=== PATIENT | female | born 1945 | race African-American/Black ===

== ENCOUNTER → 2017-09-20 | Outpatient (CLI) | payer MEDICARE, MEDICAID ==
[~2017-09-20] VITALS: Ht 162.6 cm; Wt 101.5 kg
[~2017-09-20] MED LIST: LEVOXYL0.175 MG PO; PRINIVIL20 MG PO; PROCARDIA XL 3030 MG PO
[2017-09-20 10:47] VITALS: BP 213/100; PULSE 78
[2017-09-20 12:08] VITALS: BP 202/108; PULSE 121
[2017-09-20 12:09] VITALS: BP 220/100; PULSE 108
== END ==
LOC: COL.CARD 10:14
DX: I10 Essential (primary) hypertension (principal); E78.00 Pure hypercholesterolemia, unspecified
CPT/HCPCS: A9502; J2785

== ENCOUNTER → 2017-11-06 | Outpatient (CLI) | payer MEDICARE, MEDICAID | LOC: COL.RAD 10:17 | DX: N95.0 Postmenopausal bleeding (principal) ==

== ENCOUNTER 2017-12-05 11:44 | Outpatient (CLI) | payer MEDICARE, MEDICAID ==
[2017-12-05] VITALS (10 sets, daily range): BP systolic 97–189; BP diastolic 45–80; PULSE 48–87; TEMP 97.7
[~2017-12-05] VITALS: Ht 162.6 cm; Wt 96.9 kg
[2017-12-05 12:13] LABS: HEMATOCRIT 42.1 % (37.0-47.0); HEMOGLOBIN 14.1 g/dl (12.5-16.0); MEAN CELL VOLUME 94 fl (80.0-100.0); MEAN CORPUSCULAR HEMOGLOBIN 31 pg (27.0-31.0); MEAN CORPUSCULAR HGB CONC 34 g/dl (33.0-37.0); PLATELET COUNT 216 K/mm3 (130-400); RED BLOOD COUNT 4.49 M/mm3 (4.10-5.30); REDCELL DISTRIBUTION WIDTH-CV 13.4 % (11.5-14.5)
[2017-12-05 12:18] LABS: INR 1.1 (0.8-3.0); PROTHROMBIN TIME 12.4 SECONDS (9.7-12.8)
[2017-12-05 12:24] LABS: CALCIUM 9.3 mg/dL (8.4-10.2); POTASSIUM 3.7 mmol/L (3.4-5.0)
[2017-12-05] MEDS ORDERED: MASON NATURAL1200 MG PO (13:57)
[2017-12-05] MEDS ORDERED: PLAVIX 75MG TAB75 MG PO (13:58)
[2017-12-05] MEDS ORDERED: ASPIRIN 81M81 MG/TA2 PO (13:59)
[2017-12-05] MEDS ORDERED: FIBER CHOICE1 CTB PO (14:00)
[2017-12-05] MEDS ORDERED: TOPROL XL 25MG25 MG PO (14:01)
== END 2017-12-05 20:25 | disposition home or self-care (01) ==
LOC: COL.VAS 11:44
PROVIDERS: Internal Medicine Cardiovascular Disease
DX: I08.2 Rheumatic disorders of both aortic and tricuspid valves (principal); I10 Essential (primary) hypertension; Z82.49 Family history of ischemic heart disease and other diseases of the circulatory system
CPT/HCPCS: J2250; J3010; Q9967

== ENCOUNTER → 2018-04-12 | Outpatient (CLI) | payer MEDICARE, MEDICAID ==
[~2018-04-12] MED LIST changes: +ASPIRIN 81M81 MG/TA2 PO; +FIBER CHOICE1 CTB PO; +MASON NATURAL1200 MG PO; +PLAVIX 75MG TAB75 MG PO; +TOPROL XL 25MG25 MG PO
== END ==
LOC: COL.RAD 08:18
DX: C54.1 Malignant neoplasm of endometrium (principal); R91.8 Other nonspecific abnormal finding of lung field; R54 Age-related physical debility
CPT/HCPCS: Q9967

== ENCOUNTER 2018-06-05 07:59 | Day surgery (SDC) | payer MEDICARE, MEDICAID ==
[~2018-06-05] VITALS: Ht 160 cm; Wt 94.0 kg
[2018-06-05] MEDS ORDERED: PROCARDIA XL 6060 MG PO (08:19)
[2018-06-05] MEDS ORDERED: PROTONIX 40MG T40 MG PO (08:20)
[2018-06-05] MEDS ORDERED: TOPROL XL 50MG50 MG PO (08:21)
[2018-06-05 08:23] VITALS: PULSE 89; TEMP 98.2
[2018-06-05 10:30] VITALS: BP 95/69; PULSE 70; TEMP 97.4
[2018-06-05] MEDS ORDERED: NORCO 325 MG-51 TAB PO (10:33)
[2018-06-05 10:45] VITALS: BP 128/81; PULSE 79
[2018-06-05 11:00] VITALS: BP 161/82; PULSE 69
[2018-06-05 11:15] VITALS: BP 164/79; PULSE 64
== END 2018-06-05 11:30 | disposition home or self-care (01) ==
LOC: SDCO 07:59
DX: C54.1 Malignant neoplasm of endometrium (principal); C78.6 Secondary malignant neoplasm of retroperitoneum and peritoneum; I10 Essential (primary) hypertension; E03.9 Hypothyroidism, unspecified; Z90.710 Acquired absence of both cervix and uterus; Z82.49 Family history of ischemic heart disease and other diseases of the circulatory system; Z80.0 Family history of malignant neoplasm of digestive organs; Z80.1 Family history of malignant neoplasm of trachea, bronchus and lung; Z80.8 Family history of malignant neoplasm of other organs or systems
CPT/HCPCS: C1788; J0690; J2250; J2405; J2704; J3010; J7120

== ENCOUNTER 2018-08-01 18:54 | Inpatient (IN) | payer MEDICARE, MEDICAID ==
[~2018-08-01] VITALS: Ht 160 cm; Wt 87.5 kg
[~2018-08-01 18:54] MED LIST changes: -ELIQUIS 5MG PO; -SENOKOT8.6 MG PO; -WOMEN'S DAILY1 TAB PO
[2018-08-01 19:33] VITALS: BP 187/94; PULSE 100; TEMP 98.2
[2018-08-01 19:51] VITALS: BP 187/94; PULSE 100; TEMP 98.2
[2018-08-01] MEDS ORDERED: ELIQUIS 5MG PO (20:06)
[2018-08-01] MEDS ORDERED: WOMEN'S DAILY1 TAB PO (20:08)
[2018-08-01] MEDS ORDERED: SENOKOT8.6 MG PO (20:34)
[2018-08-01 21:23] LABS: BASO % 0.4 % (0.0-2.0); EOS % 1.2 % (0-4.0); GRAN % 39.9 % (42.2-75.2); HEMOGLOBIN 10.3 g/dl (12.5-16.0); LYMPH # 1.2 (1.2-3.4); LYMPH % 48.6 % (20.0-51.0); MEAN CELL VOLUME 90 fl (80.0-100.0); MEAN CORPUSCULAR HEMOGLOBIN 30 pg (27.0-31.0); MEAN CORPUSCULAR HGB CONC 34 g/dl (33.0-37.0); MEAN PLATELET VOLUME 9.7 fl (7.4-10.4); MONO # 0.2 (0.1-0.6); MONO % 9.5 % (1.7-9.3); PLATELET COUNT 202 K/mm3 (130-400); RED BLOOD COUNT 3.42 M/mm3 (4.10-5.30); REDCELL DISTRIBUTION WIDTH-CV 17.8 % (11.5-14.5)
[2018-08-01 21:24] LABS: HEMATOCRIT 30.7 % (37.0-47.0)
[2018-08-01 21:28] LABS: INR 1.3 (0.8-3.0); PROTHROMBIN TIME 14.3 SECONDS (9.7-12.8)
[2018-08-01 21:31] LABS: PARTIAL THROMBOPLASTIN TIME 35.9 SECONDS (26.0-37.0)
[2018-08-01 21:35] LABS: ALBUMIN 3.8 gm/dL (3.5-5.0); BILIRUBIN,TOTAL 0.5 mg/dL (0.0-1.0); CREATININE, serum 0.72 mg/dL (0.52-1.25); POTASSIUM 3.6 mmol/L (3.4-5.0); TOTAL PROTEIN 7.3 gm/dL (6.4-8.2)
[2018-08-01 22:21] LABS: TROPONIN-I 0.036 ng/mL (0.000-0.034)
[2018-08-02] VITALS: BP 136/73; PULSE 72; TEMP 98.1
[2018-08-02 00:18] LABS: PH 7 (5-8); SQUAMOUS EPITHELIAL 0-2 /hpf; URINE APPEARANCE Clear; URINE BACTERIA None Seen /hpf; URINE BILIRUBIN Negative (NEGATIVE); URINE BLOOD Negative (NEGATIVE); URINE COLOR Yellow; URINE GLUCOSE Negative (NEGATIVE); URINE KETONE Trace (NEGATIVE); URINE LEUKOCYTE ESTERASE Trace (NEGATIVE); URINE NITRATE Negative (NEGATIVE); URINE PROTEIN(semi-quant) 1+ (NEGATIVE); URINE RBC 0-2 /hpf; URINE UROBILINOGEN >=4.0 mg/dL (NEGATIVE)
[2018-08-02 03:41] LABS: COLLECTION METHOD CLEAN CATCH
[2018-08-02 04:00] VITALS: BP 179/88; PULSE 81; TEMP 98
[2018-08-02 04:10] LABS: HEMATOCRIT 29.2 % (37.0-47.0); HEMOGLOBIN 9.8 g/dl (12.5-16.0); MEAN CELL VOLUME 91 fl (80.0-100.0); MEAN CORPUSCULAR HEMOGLOBIN 31 pg (27.0-31.0); MEAN CORPUSCULAR HGB CONC 34 g/dl (33.0-37.0); MEAN PLATELET VOLUME 10.1 fl (7.4-10.4); PLATELET COUNT 188 K/mm3 (130-400); REDCELL DISTRIBUTION WIDTH-CV 18.2 % (11.5-14.5)
[2018-08-02 04:26] LABS: CALCIUM 8.5 mg/dL (8.4-10.2); CREATININE, serum 0.62 mg/dL (0.52-1.25); POTASSIUM 3.6 mmol/L (3.4-5.0)
[2018-08-02 04:42] LABS: TROPONIN-I 0.041 ng/mL (0.000-0.034)
[2018-08-02 04:46] LABS: BAND 14 % (0-10); BASOPHIL 2 % (0-2); EOSINOPHIL 4 % (0-4); LYMPHOCYTE 62 % (20.0-51.0); NEUTROPHILS 18 % (42.0-75.2); PLATELET ESTIMATE NORMAL (NORMAL)
[2018-08-02 04:47] LABS: ANISOCYTOSIS 1+; OVALOCYTES 1+; SCHISTOCYTES 1+
[2018-08-02 06:57] LABS: PARTIAL THROMBOPLASTIN TIME 106.4 SECONDS (26.0-37.0)
[2018-08-02 08:06] LABS: PATHOLOGY DIFF REVIEW OK
[2018-08-02 08:29] LABS: PARTIAL THROMBOPLASTIN TIME 43.1 SECONDS (26.0-37.0)
[2018-08-02 12:00] VITALS: BP 161/82; TEMP 97.9
[2018-08-02 13:15] VITALS: PULSE 103
[2018-08-02 13:43] LABS: INR 1.3 (0.8-3.0); PROTHROMBIN TIME 15.1 SECONDS (9.7-12.8)
[2018-08-02 16:00] VITALS: BP 146/73; PULSE 67; TEMP 97.8
[2018-08-02 20:00] VITALS: BP 148/73; PULSE 71; TEMP 98.6
[2018-08-02 23:26] LABS: PARTIAL THROMBOPLASTIN TIME 62.9 SECONDS (26.0-37.0)
[2018-08-03 00:15] VITALS: BP 113/64; PULSE 84; TEMP 98.1
[2018-08-03 04:00] VITALS: BP 149/81; PULSE 71; TEMP 98.1
[2018-08-03 05:40] LABS: MEAN CELL VOLUME 92 fl (80.0-100.0); MEAN CORPUSCULAR HGB CONC 33 g/dl (33.0-37.0); PLATELET COUNT 226 K/mm3 (130-400); RED BLOOD COUNT 3.04 M/mm3 (4.10-5.30); REDCELL DISTRIBUTION WIDTH-CV 18.8 % (11.5-14.5)
[2018-08-03 05:41] LABS: HEMATOCRIT 28.1 % (37.0-47.0); HEMOGLOBIN 9.3 g/dl (12.5-16.0); MEAN CORPUSCULAR HEMOGLOBIN 31 pg (27.0-31.0)
[2018-08-03 05:53] LABS: CALCIUM 8.1 mg/dL (8.4-10.2); CREATININE, serum 0.63 mg/dL (0.52-1.25); POTASSIUM 3.6 mmol/L (3.4-5.0)
[2018-08-03 07:41] VITALS: BP 168/81; PULSE 72; TEMP 98
[2018-08-03] MEDS ORDERED: ELIQUIS 5MG PO (11:08)
[2018-08-03 12:00] VITALS: BP 162/82; PULSE 67; TEMP 98.1
== END 2018-08-03 13:35 | disposition home or self-care (01) | DRG 167 ==
LOC: ICU 18:54
PROVIDERS: Internal Medicine; Nurse Practitioner Family; Physician Assistant; Radiology Diagnostic Radiology
PROC: 06H03DZ Insertion of Intraluminal Device into Inferior Vena Cava, Percutaneous Approach (ICD-10-PCS; principal; 2018-08-02)
DX: I26.99 Other pulmonary embolism without acute cor pulmonale (principal); I82.411 Acute embolism and thrombosis of right femoral vein; C78.6 Secondary malignant neoplasm of retroperitoneum and peritoneum; I82.431 Acute embolism and thrombosis of right popliteal vein; I10 Essential (primary) hypertension; I25.10 Atherosclerotic heart disease of native coronary artery without angina pectoris; C54.1 Malignant neoplasm of endometrium; Z87.891 Personal history of nicotine dependence; D64.9 Anemia, unspecified
CPT/HCPCS: 99223-AI; 99239; J0360; J1644; J2250; J3010; J7030; Q9967

== ENCOUNTER → 2018-08-01 | Outpatient (CLI) | payer MEDICARE, MEDICAID ==
[~2018-08-01] MED LIST changes: +ELIQUIS 5MG PO; +NORCO 325 MG-51 TAB PO; +PROCARDIA XL 6060 MG PO; +PROTONIX 40MG T40 MG PO; +SENOKOT8.6 MG PO; +TOPROL XL 50MG50 MG PO; +WOMEN'S DAILY1 TAB PO
== END ==
LOC: COL.RAD 08:21
DX: C56.2 Malignant neoplasm of left ovary (principal); C54.1 Malignant neoplasm of endometrium; I26.99 Other pulmonary embolism without acute cor pulmonale; J18.1 Lobar pneumonia, unspecified organism; K80.20 Calculus of gallbladder without cholecystitis without obstruction; N20.0 Calculus of kidney; Z90.710 Acquired absence of both cervix and uterus
CPT/HCPCS: Q9967

== ENCOUNTER → 2018-08-01 | Outpatient (CLI) | payer MEDICARE, MEDICAID | LOC: COL.VAS 12:55 | DX: I82.411 Acute embolism and thrombosis of right femoral vein (principal); I82.431 Acute embolism and thrombosis of right popliteal vein; I26.99 Other pulmonary embolism without acute cor pulmonale; Z86.718 Personal history of other venous thrombosis and embolism ==

== ENCOUNTER → 2018-08-01 | Emergency (ER) | payer MEDICARE, MEDICAID ==
[2018-08-01] VITALS (143 sets, daily range): O2SAT 95–100
[2018-08-02] VITALS (767 sets, daily range): O2SAT 67–100
[2018-08-03] VITALS (268 sets, daily range): O2SAT 91–100
== END ==
LOC: COL.ER 18:49
DX: Z72.9 Problem related to lifestyle, unspecified (principal)

== ENCOUNTER → 2018-10-26 | Outpatient (CLI) | payer MEDICARE, MEDICAID ==
[~2018-10-26] MED LIST changes: +ELIQUIS 5MG PO; +SENOKOT8.6 MG PO; +WOMEN'S DAILY1 TAB PO
== END ==
LOC: COL.VAS 08:36
DX: C56.2 Malignant neoplasm of left ovary (principal); M79.89 Other specified soft tissue disorders

== ENCOUNTER 2018-11-12 08:39 | Outpatient (CLI) | payer MEDICARE, MEDICAID ==
[~2018-11-12] VITALS: Ht 157.5 cm; Wt 83.2 kg
[2018-11-12 09:02] VITALS: BP 175/84; PULSE 67; TEMP 98.6
[2018-11-12] MEDS ORDERED: HYGROTON 2525 MG/TAB (09:31)
[2018-11-12] MEDS ORDERED: ELIQUIS 5MG PO (09:32)
[2018-11-12 12:27] VITALS: BP 190/94; PULSE 89
--- NOTE | 2018-11-12 12:31 | NUR ---
ALL MEDICATION GIVEN WITH VORB WITH MD. SEE MERGE FOR ALL MEDICATION ADMIN TIMES. SEE MERGE FOR ALL RASS ASSESSMENTS DURING AND POST PROCEDURE.
[2018-11-12 13:30] VITALS: BP 164/78; PULSE 60
--- NOTE | 2018-11-12 13:30 | NUR ---
PT BACK TO ROOM 10 POST IVC FILTER REMOVAL. VSS AND AX0X3. DENIES PAIN. RIGHT NECK DRESSING C/D/I. PT RESTING COMFORTABLY IN BED AT THIS TIME AND ORDERING FOOD.
--- NOTE | 2018-11-12 15:40 | NUR ---
PT VSS AND AX0X3 POST IVC FILTER REMOVAL. DRESSING REMAINED C/D/I AND PT VERBALIZES NO PAIN. TOLERATING FOOD AND FLUID PO WITHOUT ISSUE. PORT FLUSHED AND D/C W/BAND AID PLACED OVER SITE. DISCHARGE INSTRUCTIONS REVIEWED AND SIGNED. PT WHEELED OUT VIA WHEELCHAIR WITH SISTER WAITING AT ENTRANCE ART GLASS SETTER.
== END 2018-11-12 15:40 | disposition home or self-care (01) ==
LOC: COL.CAR 08:39
DX: Z45.2 Encounter for adjustment and management of vascular access device (principal); Z86.711 Personal history of pulmonary embolism; Z86.718 Personal history of other venous thrombosis and embolism; Z79.01 Long term (current) use of anticoagulants; Z85.43 Personal history of malignant neoplasm of ovary; Z90.710 Acquired absence of both cervix and uterus
CPT/HCPCS: J1644; J2250; J3010; J7120; Q9967

== ENCOUNTER 2018-11-14 14:50 | Inpatient (IN) | payer MEDICARE, MEDICAID ==
[~2018-11-14] VITALS: Ht 157.5 cm; Wt 88.4 kg
[~2018-11-14 14:50] MED LIST changes: +HYGROTON 2525 MG/TAB
[2018-11-14] MEDS ORDERED: SYNTHROID0.175 MG PO (15:10)
[2018-11-14 16:45] VITALS: BP 153/73; PULSE 67
[2018-11-14 16:52] LABS: BASO % 0.2 % (0.0-2.0); EOS % 0.2 % (0-4.0); GRAN # 8.3 (1.4-6.5); GRAN % 81.1 % (42.2-75.2); HEMOGLOBIN 10.3 g/dl (12.5-16.0); LYMPH # 1.2 (1.2-3.4); LYMPH % 11.9 % (20.0-51.0); MEAN CELL VOLUME 99 fl (80.0-100.0); MEAN CORPUSCULAR HEMOGLOBIN 32 pg (27.0-31.0); MEAN CORPUSCULAR HGB CONC 32 g/dl (33.0-37.0); MEAN PLATELET VOLUME 10.1 fl (7.4-10.4); MONO # 0.6 (0.1-0.6); MONO % 5.8 % (1.7-9.3); PLATELET COUNT 214 K/mm3 (130-400); RED BLOOD COUNT 3.21 M/mm3 (4.10-5.30); REDCELL DISTRIBUTION WIDTH-CV 14.8 % (11.5-14.5)
[2018-11-14 16:54] LABS: HEMATOCRIT 31.9 % (37.0-47.0)
[2018-11-14 17:01] LABS: ALANINE AMINOTRANSFERASE 10 U/L (9-52); ALBUMIN 3.7 gm/dL (3.5-5.0); ALKALINE PHOSPHATASE 118 U/L (50-136); ANION GAP 6 mmol/L (7-16); AST,SGOT 51 U/L (15-37); BILIRUBIN,TOTAL 0.4 mg/dL (0.0-1.0); BLOOD UREA NITROGEN 18 mg/dL (7-17); CALCIUM 9.4 mg/dL (8.4-10.2); CARBON DIOXIDE 27 mmol/L (22-30); CHLORIDE 102 mmol/L (98-107); CREATININE, serum 0.81 (0.52-1.25); GLUCOSE 157 mg/dL (74-106); POTASSIUM 3.9 mmol/L (3.4-5.0); SODIUM 136 mmol/L (137-145); TOTAL PROTEIN 7.4 gm/dL (6.4-8.2)
[2018-11-14 17:07] LABS: C-REACTIVE PROTEIN 0.5 mg/dL (0.0-0.9)
[2018-11-14 17:18] LABS: TROPONIN-I < 0.012 ng/mL (0.000-0.035)
[2018-11-14 18:16] LABS: COLLECTION METHOD CLEAN CATCH
[2018-11-14 18:49] LABS: HYALINE CAST >12 /lpf; MUCOUS Present /lpf; PH 7 (5-8); URINE APPEARANCE Hazy; URINE BACTERIA Rare /hpf; URINE BILIRUBIN Negative (NEGATIVE); URINE BLOOD Negative (NEGATIVE); URINE COLOR Yellow; URINE GLUCOSE Negative (NEGATIVE); URINE KETONE Negative (NEGATIVE); URINE LEUKOCYTE ESTERASE 2+ (NEGATIVE); URINE NITRATE Negative (NEGATIVE); URINE PROTEIN(semi-quant) Negative (NEGATIVE); URINE UROBILINOGEN Negative (NEGATIVE)
--- NOTE | 2018-11-14 22:42 | NUR ---
PT ARRIVED FROM ER VIA GURNEY ACCOMPANIED BY CREATIVE PROJECT MANAGER. PT WAS ASSISTED FROM [facility] TO BED WITH SLIDE BOARD. PT RESTING IN BED. HAS C/O NECK PAIN FROM WHERE SHE HIT HER NECK WHEN SHE FELL. AREA TO BACK OF HEAD HAS BANDAID THAT IS C/D/I. CALL LIGHT WITHIN REACH.
--- NOTE | 2018-11-14 22:46 | NUR ---
PT ADVISES THAT SHE HAD CHEMO THERAPY 2 WEEKS AGO AND THAT SHE IS SCHEDULED FOR CHEMO THERAPY A WEEK FROM MONDAY.
[2018-11-14 23:43] VITALS: BP 161/64; PULSE 71; TEMP 98.3
[2018-11-14 23:44] VITALS: BP 161/64; PULSE 70; TEMP 98.3
--- NOTE | 2018-11-15 00:30 | NUR ---
RECEIVED ORDER FROM RACHID CHIN IF PT NEEDS TWO LIDOCAINE PATCHES TO GO AHEAD AND PUT IN A SECOND ON.
--- NOTE | 2018-11-15 01:39 | NUR ---
PT RESTING IN BED WITH HOB FLAT. PT HAS TWO LIDOCAINE PATCHES ON, PER PT'S REQUEST FOR PAIN. CALL LIGHT WITHIN REACH.
--- NOTE | 2018-11-15 03:52 | NUR ---
ASSISTED PT ONTO BEDPAN. PT HAD OUTPUT, BUT REFUSES TO DRINK WATER OR EVEN GET IT FOR HER. PT HAS NO FURTHER NEEDS, AND CALL LIGHT WITHIN REACH.
[2018-11-15 04:29] VITALS: BP 111/71; BP 154/67; PULSE 63; PULSE 81; TEMP 98.2
[2018-11-15 06:46] LABS: BASO % 0.1 % (0.0-2.0); EOS % 0.2 % (0-4.0); GRAN # 6.2 (1.4-6.5); LYMPH # 1.3 (1.2-3.4); LYMPH % 15.5 % (20.0-51.0); MEAN CELL VOLUME 99 fl (80.0-100.0); MEAN CORPUSCULAR HGB CONC 32 g/dl (33.0-37.0); MEAN PLATELET VOLUME 10.7 fl (7.4-10.4); MONO # 0.6 (0.1-0.6); MONO % 6.8 % (1.7-9.3); PLATELET COUNT 200 K/mm3 (130-400); RED BLOOD COUNT 2.91 M/mm3 (4.10-5.30); REDCELL DISTRIBUTION WIDTH-CV 14.8 % (11.5-14.5)
[2018-11-15 06:48] LABS: HEMATOCRIT 28.9 % (37.0-47.0); HEMOGLOBIN 9.3 g/dl (12.5-16.0); MEAN CORPUSCULAR HEMOGLOBIN 32 pg (27.0-31.0)
[2018-11-15 06:54] LABS: CALCIUM 8.8 mg/dL (8.4-10.2); CREATININE, serum 0.69 (0.52-1.25); POTASSIUM 3.7 mmol/L (3.4-5.0)
--- NOTE | 2018-11-15 08:00 | NUR ---
PATIENT IS A&O. VSS. TELE INPLACE. C/O NECK STIFFNESS FROM FALL. NOTED SMALL LACERATION TO BACK OF HEAD THAT IS COVERED WITH BANDAID. PATIENT REQUESTING ICE PACK FOR NECK. PATIENT HAS CHRONIC PAIN ISSUES. APPLIED LIDODERM PATCHES X2 TO SHOULDER AND BACK. NEURO CHECKS WNL. HEAD TO ASSESSMENT WNL. PATIENT DOES C/O DIZZINESS WITH AMBULATION. PATIENT REQUESTED TO USE BED BUTCHER THIS AM. PT TO EVAL AND TREAT TODAY. IV FLUIDS INFUSING AT 60CC/HR INTO RIGHT PORT. PATIENT REPORTS DECREASED APPETITE BUT THIS IS NORMAL WITH HER CHEMO. PATIENT REPORTS HER NEXT CHEMO IS SCHEDULED FOR NEXT MONDAY. PATIENT DRINKING ENSURE THIS AM. NO OTHER NEEDS. CALL LIGHT IN REACH.
[2018-11-15 08:04] VITALS: BP 149/60; PULSE 67; TEMP 98.3
--- NOTE | 2018-11-15 09:05 | NUR ---
BENI and SW student met with the patient to discuss discharge plan. The patient lives alone in [place]. She states that her sisters (Pia and Juan) and her son (Carlos) live in town. She reports independence with ADLs and does not use any DME. She states that her sister, Pia, is her ship's cook and provides support. The patient's PCP is Dr. Bharti Morley and she receives her medications at the [facility]. She reports no difficulties obtaining her meds. The patient does not have advanced directives, but she was interested in obtaining a form for DPOA-HC. SW provided. The patient plans to return home upon discharge. No identified needs at this time, but SW to continue to follow.
--- NOTE | 2018-11-15 11:30 | NUR ---
PATIENT TRANSFERING TO MEDICAL UNIT. CALLED REPORT TO RN.
--- NOTE | 2018-11-15 11:30 | NUR ---
Pt brought to floor. Pt lying in bed, breathing even and unlabored. Denies any needs at this time.
[2018-11-15 11:56] VITALS: BP 137/44; PULSE 59; TEMP 98
--- NOTE | 2018-11-15 13:00 | NUR ---
Pt lying in bed, eyes closed. Breathing even and unlabored.
--- NOTE | 2018-11-15 14:00 | NUR ---
Pt lying in bed, completed assessment. Requested lidocaine patch for shoulder. Pt denies any needs.
--- NOTE | 2018-11-15 14:13 | NUR ---
PT in room with pt. Pt complaining of pain while sitting up. Pt states her pain is in her neck. Medications administered. Will follow up with heat pads.
[2018-11-15 15:53] VITALS: BP 107/51; PULSE 55; TEMP 98.1
--- NOTE | 2018-11-15 19:34 | NUR ---
PT LYING IN BED, REQUESTING HEAT PACK. HAND OFF REPORT GIVEN TO TAMAR DURÁN
[2018-11-15 20:00] VITALS: BP 132/62; PULSE 62; TEMP 98.7
--- NOTE | 2018-11-15 22:58 | NUR ---
Completed medication administration and assessment; PT continues to utilize bedpan, ABX therapy for UTI, and PRN medication with heat packs for pain control; Lidocaine patches removed at 2100; PT A&Ox4, BS active x4, LCTA; @ patches removed, one from right shoulder and one from left shoulder; No patch found on neck; No further assessed or reported pain or concerns at time of exit; PT assisted to comfortable position in bed with call light within reach; Will continue to monitor. CDA
[2018-11-16] VITALS (10 sets, daily range): BP systolic 116–141; BP diastolic 44–82; PULSE 55–111; TEMP 97.8–98.9
--- NOTE | 2018-11-16 03:52 | NUR ---
PT resting well in bed with heating pad in place; Lidocaine patches removed at 2100 x2; NS running at 60ml/hr to [facility] port; Rocephin ABX therapy for UTI; No further assessed concerns or pain at time of exit; PT assisted to comfortable position in bed with call light within reach; Will continue to monitor. CDA
--- NOTE | 2018-11-16 06:50 | NUR ---
Report given to LUIS ARMANDO Black; No significant changes during shift change; minimal pain reported; NS hanging at 60ml/hr to [facility] Port. CDA
--- NOTE | 2018-11-16 07:00 | NUR ---
Report received from LUIS ARMANDO Bonner. PT in bed resting, requesting heat pack, and fresh water, will continue to monitor.
[2018-11-16 08:05] LABS: BASO % 0.2 % (0.0-2.0); EOS # 0.1 (0.0-0.7); EOS % 2.4 % (0-4.0); GRAN # 3.4 (1.4-6.5); GRAN % 64.5 % (42.2-75.2); LYMPH # 1.3 (1.2-3.4); LYMPH % 23.7 % (20.0-51.0); MEAN CELL VOLUME 102 fl (80.0-100.0); MEAN CORPUSCULAR HGB CONC 32 g/dl (33.0-37.0); MEAN PLATELET VOLUME 10.1 fl (7.4-10.4); MONO # 0.5 (0.1-0.6); PLATELET COUNT 180 K/mm3 (130-400); RED BLOOD COUNT 2.63 M/mm3 (4.10-5.30); REDCELL DISTRIBUTION WIDTH-CV 15.4 % (11.5-14.5)
[2018-11-16 08:06] LABS: HEMATOCRIT 26.7 % (37.0-47.0); HEMOGLOBIN 8.4 g/dl (12.5-16.0); MEAN CORPUSCULAR HEMOGLOBIN 32 pg (27.0-31.0)
[2018-11-16 08:13] LABS: CALCIUM 8.4 mg/dL (8.4-10.2); CREATININE, serum 0.88 (0.52-1.25); POTASSIUM 3.8 mmol/L (3.4-5.0)
--- NOTE | 2018-11-16 10:51 | NUR ---
Assessment charted. Pt has pain in neck and shoulders at 10/10, will provide pain meds when available, has 3 heat packs on neck, shoulders, and 3 lidocaine patches on as well. PAC to [facility] with IVF infusing. Will continue to monitor.
--- NOTE | 2018-11-16 18:13 | NUR ---
Pt has had okay day, resting in bed. Able to get up with us to do orthostatic blood pressures but otherwise using bed rojo and maintaining bed rest. PRN pain meds provided, k pad on neck and back as needed for pain. Will give bedside shift repot to nightshift nurse who will resume care.
--- NOTE | 2018-11-16 23:55 | NUR ---
Completed assessment and medication administration; PT tolerated all cares well; K-Pad in placed to upper neck and back; Lidocaine patches removed x3; PT continues to utilize bedpan during even hours with success; PT A&Ox4, BS active x4, normal skin; portacath to right upper chest without S/S of infection or drainage, LCTAB; No further verbalized and assessed concerns at time of exit; PT assisted to comfortable position in bed with call light and personal item within reach; Will continue to monitor. CDA
--- NOTE | 2018-11-17 01:52 | NUR ---
PT resting intermittently in bed with k-pad in place behind neck and shoulder blades; PT report mild pain and request to deem the remaining light and turned the TV off to attempt to rest for the remainder of the evening; NS at 60ml/hr to the [facility] port continues; No further assessed or verbalized needs at times of rounds; PT assisted to a comfortable position in bed with call light and personal items within reach; Will continue to monitor. CDA
[2018-11-17 04:20] VITALS: BP 137/53; PULSE 60; TEMP 98.4
[2018-11-17 06:28] LABS: BASO % 0.7 % (0.0-2.0); EOS # 0.2 (0.0-0.7); EOS % 3.6 % (0-4.0); GRAN # 2.5 (1.4-6.5); GRAN % 56.5 % (42.2-75.2); LYMPH # 1.2 (1.2-3.4); LYMPH % 27.8 % (20.0-51.0); MEAN CELL VOLUME 101 fl (80.0-100.0); MEAN CORPUSCULAR HGB CONC 31 g/dl (33.0-37.0); MEAN PLATELET VOLUME 10.7 fl (7.4-10.4); MONO # 0.5 (0.1-0.6); PLATELET COUNT 171 K/mm3 (130-400); RED BLOOD COUNT 2.65 M/mm3 (4.10-5.30)
[2018-11-17 06:30] LABS: CALCIUM 8.6 mg/dL (8.4-10.2); CREATININE, serum 0.78 (0.52-1.25); HEMATOCRIT 26.8 % (37.0-47.0); HEMOGLOBIN 8.4 g/dl (12.5-16.0); MEAN CORPUSCULAR HEMOGLOBIN 32 pg (27.0-31.0); POTASSIUM 3.7 mmol/L (3.4-5.0)
--- NOTE | 2018-11-17 07:05 | NUR ---
Report given to LUIS ARMANDO Larios; No significant changes or concerns at time of shift. CDA
[2018-11-17 07:52] VITALS: BP 12152/5; BP 152/56; PULSE 60; TEMP 98.6
--- NOTE | 2018-11-17 08:22 | NUR ---
Assessment complete.patient awake,alert and orientedx3.c/o chronic pain to neck and shoulders.licodaine patch applied.all meds given.LSCTA.colleen cath to [facility].IVF infusing.patient denies any other needs at this time.will continue to monitor.call light in reach
--- NOTE | 2018-11-17 10:18 | NUR ---
BENI followed up with the patient about home health services. The patient reports Pia, her sister is employed with [employer]. The patient reports that Pia will provide all the support she needs. There are no additional needs at this time.
[2018-11-17] MEDS ORDERED: OMNICEF 300MG300 MG PO (11:06)
[2018-11-17] MEDS ORDERED: Lidocaine 4% Patch TP (11:10)
[2018-11-17] MEDS ORDERED: NORCO 325 MG-51 TAB PO (14:24)
--- NOTE | 2018-11-17 14:43 | NUR ---
PATIENT DISCHARGE HOME AT THIS TIME.ALL DISCHARGE INSTRUCTIONS REVIEWED.ALL QUESTIONS ANSWERED.ALL PAPERWORK SIGNED.AU GRES SCRIPT GIVEN.PORT DE-ACCESSED.TELEMETRY DISCONTINUED.THIS RN ESCORTED PATIENT OUT.
== END 2018-11-17 14:45 | disposition home or self-care (01) | DRG 690 ==
LOC: COL.ER 14:50 → SURG 19:52 → MEDICAL 11-15 11:30 → SURG 11-15 11:30 → MEDICAL 11-15 14:39
PROVIDERS: Emergency Medicine; Nurse Practitioner; Nurse Practitioner Family; ADMIT Internal Medicine
DX: N39.0 Urinary tract infection, site not specified (principal); C78.6 Secondary malignant neoplasm of retroperitoneum and peritoneum; R55 Syncope and collapse; C54.1 Malignant neoplasm of endometrium; I25.10 Atherosclerotic heart disease of native coronary artery without angina pectoris; Z86.711 Personal history of pulmonary embolism; Z79.01 Long term (current) use of anticoagulants; Z86.718 Personal history of other venous thrombosis and embolism; I10 Essential (primary) hypertension; E03.9 Hypothyroidism, unspecified; B96.89 Other specified bacterial agents as the cause of diseases classified elsewhere; D64.9 Anemia, unspecified; M25.512 Pain in left shoulder; M54.2 Cervicalgia; W18.30XA Fall on same level, unspecified, initial encounter; S01.01XA Laceration without foreign body of scalp, initial encounter
CPT/HCPCS: 99222-AI; 99231-AI; 99239; J0696; J2405; J3010; J7030; Q9967

== ENCOUNTER 2019-02-25 13:15 | Inpatient (IN) | payer MEDICARE, MEDICAID ==
[~2019-02-25] VITALS: Ht 162.6 cm; Wt 75.9 kg
[~2019-02-25 13:15] MED LIST changes: +Lidocaine 4% Patch TP; +OMNICEF 300MG300 MG PO; +SYNTHROID0.175 MG PO
[2019-02-25] MEDS ORDERED: LEVAQUIN 5500 MG/TA1 PO (13:40)
[2019-02-25 13:46] LABS: MEAN CELL VOLUME 89 fl (80.0-100.0); MEAN CORPUSCULAR HGB CONC 33 g/dl (33.0-37.0); MEAN PLATELET VOLUME 9.5 fl (7.4-10.4); PLATELET COUNT 620 K/mm3 (130-400); RED BLOOD COUNT 3.03 M/mm3 (4.10-5.30); REDCELL DISTRIBUTION WIDTH-CV 16.6 % (11.5-14.5)
[2019-02-25] MEDS ORDERED: MAG64 110 MG-181 ECT PO (13:47)
[2019-02-25] MEDS ORDERED: MILK OF MA400 MG/52 PO (13:50)
[2019-02-25] MEDS ORDERED: CENTRUM SILVER1 TAB PO (13:51)
[2019-02-25 13:52] LABS: HEMATOCRIT 27.1 % (37.0-47.0); HEMOGLOBIN 8.8 g/dl (12.5-16.0); MEAN CORPUSCULAR HEMOGLOBIN 29 pg (27.0-31.0)
[2019-02-25] MEDS ORDERED: NATURAL FLAX1000 MG PO (13:52)
[2019-02-25] MEDS ORDERED: COMPAZINE 110 MG/TAB PO (13:52)
[2019-02-25] MEDS ORDERED: KAYEXALATE15 GM/60 M PO (13:53)
[2019-02-25] MEDS ORDERED: HYGROTON 2525 MG/TAB PO (13:57)
[2019-02-25 13:59] LABS: ALANINE AMINOTRANSFERASE 60 U/L (9-52); ALBUMIN 2.8 gm/dL (3.5-5.0); ALKALINE PHOSPHATASE 298 U/L (50-136); ANION GAP 11 mmol/L (7-16); AST,SGOT 360 U/L (15-37); BILIRUBIN,TOTAL 0.8 mg/dL (0.0-1.0); BLOOD UREA NITROGEN 37 mg/dL (7-17); CALCIUM 8.3 mg/dL (8.4-10.2); CARBON DIOXIDE 26 mmol/L (22-30); CHLORIDE 101 mmol/L (98-107); CREATININE, serum 1.33 (0.52-1.25); GLUCOSE 117 mg/dL (74-106); LIPASE 22 U/L (23-300); POTASSIUM 4.1 mmol/L (3.4-5.0); SODIUM 137 mmol/L (137-145)
[2019-02-25 14:12] LABS: C-REACTIVE PROTEIN 14.7 mg/dL (0.0-0.9); TROPONIN-I < 0.012 ng/mL (0.000-0.035)
[2019-02-25 14:30] LABS: ANISOCYTOSIS 1+; BAND 4 % (0-10); LYMPHOCYTE 13 % (20.0-51.0); NEUTROPHILS 83 % (42.0-75.2); PLATELET ESTIMATE INCREASED (NORMAL)
[2019-02-25 14:31] LABS: HYPOCHROMIA 1+; OVALOCYTES 1+
[2019-02-25 14:50] LABS: COLLECTION METHOD CLEAN CATCH
[2019-02-25 15:00] LABS: MUCOUS Present /lpf; PH 5 (5-8); SQUAMOUS EPITHELIAL 0-2 /hpf; URINE APPEARANCE Cloudy; URINE BACTERIA Many /hpf; URINE BILIRUBIN Negative (NEGATIVE); URINE BLOOD Negative (NEGATIVE); URINE COLOR Yellow; URINE GLUCOSE Negative (NEGATIVE); URINE KETONE Negative (NEGATIVE); URINE LEUKOCYTE ESTERASE 3+ (NEGATIVE); URINE NITRATE Negative (NEGATIVE); URINE PROTEIN(semi-quant) Negative (NEGATIVE); URINE RBC >50 /hpf; URINE UROBILINOGEN Negative (NEGATIVE)
[2019-02-25 17:12] LABS: RETIC # 0.02 M/mm3 (0.02-0.16); RETIC % 0.8 % (0.5-3.52)
[2019-02-25 17:16] LABS: IRON,SERUM 98 ug/dL (35-150)
[2019-02-25 17:25] LABS: TOTAL IRON BINDING CAPACITY 179 ug/dL (265-497)
--- NOTE | 2019-02-25 17:50 | NUR ---
Patient arrived to room 314 by wheelchair from ED. Oriented patient to the room, bed, call light. Assessment complete. Patient alert and oriented. Denies any pain or discomfort or any needs at this time. Call light within reach.
[2019-02-25 18:12] VITALS: BP 98/61; PULSE 75; TEMP 98.4
[2019-02-25 18:29] VITALS: BP 115/60; PULSE 85
[2019-02-25 18:30] VITALS: BP 119/61; PULSE 88
[2019-02-25 18:31] VITALS: BP 84/51; PULSE 100
[2019-02-25 18:42] LABS: FERRITIN 935 ng/mL (11-264)
[2019-02-25 19:50] VITALS: BP 117/59; PULSE 75; TEMP 98.6
--- NOTE | 2019-02-25 20:00 | NUR ---
PT RESTING IN BED a+oX4. REPORTS NO LIGHT HEADEDNESS, NO DIZZNESS. NUERO CHECKS INSIGNIFICANT AND UNCHANGED. SHIFT ASSESSMNET COMPLETE. LUNGS CLEAR. PORT-A-CATH FLUSHES WELL, BLOOD RETURN NOTED. LR RUNNING AT ORDERED RATE. NO REDNESS NO SWELLING AT PORT SITE. NO PAIN. PT USING BEDPAN. SIEIZURE AND FALL PRECAUTIONS IN PLACE. NO NEEDS AT THIS TIME. CALL LIGHT IN REACH.
[2019-02-25 22:56] LABS: CREATININE, serum 1.05 (0.52-1.25)
[2019-02-25 23:26] VITALS: BP 119/57; PULSE 78; TEMP 98.4
[2019-02-26 04:43] VITALS: BP 114/57; PULSE 81; TEMP 98.1
--- NOTE | 2019-02-26 05:08 | NUR ---
PT HAD AN UNEVENTFUL NIGHT. REPORTED NO PAIN. NO SOA. PORT-A-CATH FLUSHES WELL, BLOOD RETURN NOTED- IV FLUIDS RUNNING AT ORDERED RATE. PT REQUESTS BEDPAN THROUGHOUT NIGHT. NO BM. LINENS CHANGED. REPORTS POOR APPETITE. CHEMO PRECAUTIONS IN PLACE. NO NEEDS AT THIS TIEM. CALL LIGHT IN REACH. FALL PRECATIONS IN PLACE. BED ALRM ON
[2019-02-26 06:21] LABS: MEAN CELL VOLUME 91 fl (80.0-100.0); MEAN CORPUSCULAR HGB CONC 32 g/dl (33.0-37.0); MEAN PLATELET VOLUME 9.4 fl (7.4-10.4); RED BLOOD COUNT 2.53 M/mm3 (4.10-5.30); REDCELL DISTRIBUTION WIDTH-CV 16.6 % (11.5-14.5)
[2019-02-26 06:33] LABS: HEMATOCRIT 22.9 % (37.0-47.0); HEMOGLOBIN 7.3 g/dl (12.5-16.0); MEAN CORPUSCULAR HEMOGLOBIN 29 pg (27.0-31.0); PLATELET COUNT 405 K/mm3 (130-400)
[2019-02-26 06:35] LABS: ALBUMIN 2.5 gm/dL (3.5-5.0); BILIRUBIN,TOTAL 0.6 mg/dL (0.0-1.0); CALCIUM 8.2 mg/dL (8.4-10.2); CREATININE, serum 0.96 (0.52-1.25); POTASSIUM 4.2 mmol/L (3.4-5.0); TOTAL PROTEIN 5.3 gm/dL (6.4-8.2)
[2019-02-26 06:57] VITALS: BP 126/59; PULSE 75; TEMP 98.2
--- NOTE | 2019-02-26 07:10 | NUR ---
REPORT GIVEN TO ML Treviño RN
[2019-02-26 07:53] LABS: BAND 2 % (0-10); LYMPHOCYTE 19 % (20.0-51.0); NEUTROPHILS 79 % (42.0-75.2)
[2019-02-26 07:54] LABS: ANISOCYTOSIS 1+; HYPOCHROMIA 2+; PLATELET ESTIMATE INCREASED (NORMAL)
--- NOTE | 2019-02-26 08:00 | NUR ---
PATIENT IS ORIENTED BUT VERY DROWSY. PATIENT REPORTS SHE DIDN'T GET ANY SLEEP LAST NIGHT. PATIENT HAS NEW DX OF OVARIAN CA AND LAST HAD CHEMO ON MONDAY. PATIENT FELL AT HOME AND WAS ADMITED FOR SYNCOPE. PATIENT HAS HX OF SEIZURES AND IS ON SEIZURE PRECAUTIONS. VSS. TELE INPLACE. HEART SOUNDS REGULAR/IRREGULAR IN THE 70'S. NEURO CHECKS WNL. SEE DAILY ORTHOSTATIC B/P'S. PT/OT WORKING WITH PATIENT. HEAD TO TOE ASSESSMENT COMPLETE. PATIENT RESTING IN BED AND JUST WANTS TO SLEEP. REFUSES BREAKFAST AT THIS TIME. AM MEDS GIVEN. CALL LIGHT IN REACH. LIGHTS TURNED DOWN.
--- NOTE | 2019-02-26 10:29 | NUR ---
Initial visit; Patient thanked Cdl Instructor for offering spiritual care, especially prayer and empathy.
--- NOTE | 2019-02-26 10:42 | NUR ---
Pt recieved chemotherapy drug Gemcitabine on February 22 through oncology office. Chemotherapy precautions for this drug are for the first 24 hours only. No chemotherapy precautions are needed at this time.
--- NOTE | 2019-02-26 11:00 | NUR ---
ONCOLOGY CONSULT CALLED.
[2019-02-26 11:12] VITALS: BP 127/59; PULSE 78
--- NOTE | 2019-02-26 14:51 | NUR ---
SW met with patient to discuss discharge planning. Patient lives at home alone but patient's sister is with patient everyday. Patient's PCP is Dr Morley and she obtains prescriptions from [facility] pharmacy. Patient does not use any DME or home health outside of [facility] from her sister. Patient reports her DPOA is her sister. SW does not anticipate any discharge needs but will continue to follow.
--- NOTE | 2019-02-26 15:18 | NUR ---
Follow-up visit; Patient thanked Garage Helper for checking on her before Garage Helper went home. Patient said she would see Garage Helper in the morning following Garage Helper offering God's blessings.
[2019-02-26 15:52] VITALS: BP 141/71; PULSE 80; TEMP 98.4
[2019-02-26 17:07] LABS: FOLATE (FOLIC ACID) 16.1 ng/mL (7.0-31.4)
--- NOTE | 2019-02-26 19:30 | NUR ---
PT RESTING IN BED A+OX4 WITH FAMILY AT BEDSIDE. REPORTS NO PAIN. PART-A-CATH FLUSHES, BLOOD RETUN NOTED- FLUIDS RUNNING AT ORDERED RATE. NUERO CHECKS INSIGNIFICANT, UNCHANGED. REPORTS FEELING TIRED. NO LIGHT HEADEDNESS, NO DIZZINESS. FALL PRECAUTIONS IN PLACE. CALL LIGHT IN REACH.
[2019-02-26 19:35] VITALS: BP 138/61; PULSE 82; TEMP 97.8
--- NOTE | 2019-02-26 21:30 | NUR ---
dc iv fluids at this time. no needs at this tiem
[2019-02-26 23:12] VITALS: BP 154/74; PULSE 85; TEMP 99.4
[2019-02-27] VITALS (8 sets, daily range): BP systolic 131–161; BP diastolic 62–76; PULSE 72–107; TEMP 98–98.8
--- NOTE | 2019-02-27 05:40 | NUR ---
PT HAD AN UNEVENTFUL NIGHT. NO PAIN. NEURO CHECKS INSIGNIFICANT AND UNCHANGED. STANDBY TO THE BR, GAIT STEADY. PORT-A-CATH FLUSHES WELL, NO REDNESS, NO SWELLING, BLOOD RETURN NOTED. LUNGS CLEAR. SIEZURE PRECATIONS IN PLACE. FALL PRECATIONS IN PLACE. BED ARLM ON. NO NEEDS AT THIS TIEM. CALL LIGHT IN REACH PT INSISTS IN TAKING ALL PILLS AT 1000 ADN 2200.
[2019-02-27 06:10] LABS: MEAN CELL VOLUME 92 fl (80.0-100.0); MEAN CORPUSCULAR HGB CONC 31 g/dl (33.0-37.0); MEAN PLATELET VOLUME 9.9 fl (7.4-10.4); PLATELET COUNT 444 K/mm3 (130-400); RED BLOOD COUNT 2.62 M/mm3 (4.10-5.30); REDCELL DISTRIBUTION WIDTH-CV 16.8 % (11.5-14.5)
[2019-02-27 06:23] LABS: ALBUMIN 2.5 gm/dL (3.5-5.0); BILIRUBIN,TOTAL 0.5 mg/dL (0.0-1.0); CALCIUM 8.2 mg/dL (8.4-10.2); CREATININE, serum 0.7 (0.52-1.25); HEMOGLOBIN 7.5 g/dl (12.5-16.0); MEAN CORPUSCULAR HEMOGLOBIN 29 pg (27.0-31.0); TOTAL PROTEIN 5.4 gm/dL (6.4-8.2)
[2019-02-27 07:06] LABS: HYPOCHROMIA 2+; LYMPHOCYTE 38 % (20.0-51.0); NEUTROPHILS 60 % (42.0-75.2); OVALOCYTES 1+; PLATELET ESTIMATE NORMAL (NORMAL)
--- NOTE | 2019-02-27 07:08 | NUR ---
REPORT GIVEN TO LUIS ARMANDO THOMAS. CHECKING ON NEUTROPENIC PRECATIONS
--- NOTE | 2019-02-27 18:23 | NUR ---
PT HAD UNEVENTFUL DAY. NEUPOGEN SUB-Q SHOT ORDERED BY ELIAS DAUGHERTY, THIS NURSE ADMINISTERED. PT TOLERATED WELL. NEUROS HAVE BEEN UNREMARKABLE. NO ISSUE OR CONSERNS OR ISSUES VOICED THIS SHIFT. OCCULT STOOL SAMPLE NOT OBTAINED, NO STOOLS NOTED THIS SHIFT. ORTHOSTATIC VITALS OBTIANED THIS AM AND DOCUMENTED.
--- NOTE | 2019-02-27 21:30 | NUR ---
PT RESTING IN BED A+OX4. REPORTS HEADACHE STATES "IT IS BECCAUSE MY BLOOD PRESSURE IS HIGH" - EROS CHIN NOTIFIED AND DENIED BLOOD PRESSURE MEDS D/T POSSITIVE OTHOSTATICS. TELE ON. BRZYM-U-LESO FLUSHES WELL, BLOOD RETURN NOTED. LUNGS CLEAR. PT REPORTS CONSTIPATION, COLACE ORDERED- BROUGHT IN AND PT REPORTS "JUST HAD BM" - REFUSED COLACE. NEURO CHECKS UNCHANGED AND INSIGNIFICANT. NO NEEDS AT THIST TIME. CALL LIGHT IN REACH
[2019-02-28 04:21] VITALS: BP 149/58; PULSE 78; TEMP 98
--- NOTE | 2019-02-28 05:13 | NUR ---
pt had an uneventful night. reports no bm at the beginning of the night- colace ordered- then reports bm refused colace. 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 port-a-cath flushes well, no redness no swelling- bloo return noted. seizure precautions in place. fall precautions in place. tele on. no needs at this time. call light in reach
--- NOTE | 2019-02-28 06:58 | NUR ---
REPORT GIVEN TO LUIS ARMANDO MARTINS
[2019-02-28 07:26] LABS: HEMATOCRIT 24.1 % (37.0-47.0); HEMOGLOBIN 7.6 g/dl (12.5-16.0); MEAN CELL VOLUME 91 fl (80.0-100.0); MEAN CORPUSCULAR HEMOGLOBIN 29 pg (27.0-31.0); MEAN CORPUSCULAR HGB CONC 32 g/dl (33.0-37.0); MEAN PLATELET VOLUME 9.8 fl (7.4-10.4); PLATELET COUNT 368 K/mm3 (130-400); RED BLOOD COUNT 2.65 M/mm3 (4.10-5.30); REDCELL DISTRIBUTION WIDTH-CV 16.6 % (11.5-14.5)
[2019-02-28 07:38] LABS: CALCIUM 8.1 mg/dL (8.4-10.2); CREATININE, serum 0.68 (0.52-1.25)
[2019-02-28 07:53] VITALS: BP 151/64; PULSE 72; TEMP 98
[2019-02-28 08:53] LABS: BAND 25 % (0-10); EOSINOPHIL 5 % (0-4); HYPOCHROMIA 1+; LYMPHOCYTE 33 % (20.0-51.0); METAMYELOCYTE 1 % (0-0); NEUTROPHILS 32 % (42.0-75.2); NUCLEATED RED BLOOD CELL 1 (0-6); OVALOCYTES 1+; PLATELET ESTIMATE NORMAL (NORMAL); TEAR DROP CELLS 1+
--- NOTE | 2019-02-28 10:35 | NUR ---
Follow-up visit; Patient appeared comfortable and thanked Network Programmer for looking in on her this morning. Network Programmer offered God's blessings.
[2019-02-28] MEDS ORDERED: SYNTHROID0.2 MG/TAB PO (10:53)
--- NOTE | 2019-02-28 11:00 | NUR ---
PT HAD UNEVENTFUL MORNING. MEDICATIONS ADMINISTERED SCHEDULED. IV ROCEPHEN INFUSED WITHOUT ISSUES. HEMOCULT STOOL SAMPLE COLLECTED AND SENT TO LAB, PT HAD LARGE BM, ALTHOUGH REFUSED COLACE.
--- NOTE | 2019-02-28 12:45 | NUR ---
PT DISCHARGE EDUCATION PROVIDED, PORTACATH DEACCESSED AND TELE REMOVED. DISCHARGE PAPERWORK SIGNED. QUESTIONS ANSWERED. NO ISSUES OR CONCERNS VOICED.
--- NOTE | 2019-02-28 13:15 | NUR ---
PT ESCORTED OUT OF FACILITY BY THIS NURSE VIA W/C. FAMILY MEMBER PROVIDING RIDE.
== END 2019-02-28 13:15 | disposition home or self-care (01) | DRG 312 ==
LOC: COL.ER 13:15 → MEDICAL 14:40
PROVIDERS: Family Medicine; Physician Assistant; ADMIT Family Medicine
DX: I95.1 Orthostatic hypotension (principal); N17.9 Acute kidney failure, unspecified; N39.0 Urinary tract infection, site not specified; C78.6 Secondary malignant neoplasm of retroperitoneum and peritoneum; C78.7 Secondary malignant neoplasm of liver and intrahepatic bile duct; E44.0 Moderate protein-calorie malnutrition; E86.0 Dehydration; C54.1 Malignant neoplasm of endometrium; K59.00 Constipation, unspecified; I10 Essential (primary) hypertension; I25.10 Atherosclerotic heart disease of native coronary artery without angina pectoris; D63.0 Anemia in neoplastic disease; R74.8 Abnormal levels of other serum enzymes; E03.9 Hypothyroidism, unspecified; D47.3 Essential (hemorrhagic) thrombocythemia; D70.9 Neutropenia, unspecified; D72.819 Decreased white blood cell count, unspecified; E16.2 Hypoglycemia, unspecified; Z86.718 Personal history of other venous thrombosis and embolism; Z86.711 Personal history of pulmonary embolism; Z90.710 Acquired absence of both cervix and uterus; Z79.01 Long term (current) use of anticoagulants
CPT/HCPCS: 99222-AI; 99232-AI; 99233-AI; 99239; A4216; G0378; J0696; J1447; J2405; J7030; J7120; Q9967

== ENCOUNTER 2019-03-05 17:03 | Observation (INO) | payer MEDICARE, MEDICAID ==
[2019-03-05] VITALS (117 sets, daily range): BP systolic 143; BP diastolic 84; PULSE 97; TEMP 99.2; O2SAT 98–100
[~2019-03-05] VITALS: Ht 160 cm; Wt 79.3 kg
[~2019-03-05 17:03] MED LIST changes: +CENTRUM SILVER1 TAB PO; +COMPAZINE 110 MG/TAB PO; +HYGROTON 2525 MG/TAB PO; +KAYEXALATE15 GM/60 M PO; +LEVAQUIN 5500 MG/TA1 PO; +MAG64 110 MG-181 ECT PO; +MILK OF MA400 MG/52 PO; +NATURAL FLAX1000 MG PO; +SYNTHROID0.2 MG/TAB PO
[2019-03-05 17:51] LABS: MEAN CELL VOLUME 89 fl (80.0-100.0); MEAN CORPUSCULAR HGB CONC 32 g/dl (33.0-37.0); MEAN PLATELET VOLUME 10.4 fl (7.4-10.4); PLATELET COUNT 98 K/mm3 (130-400); REDCELL DISTRIBUTION WIDTH-CV 18.9 % (11.5-14.5)
[2019-03-05 18:02] LABS: BILIRUBIN,TOTAL 1.3 mg/dL (0.0-1.0); CALCIUM 8.4 mg/dL (8.4-10.2); CREATININE, serum 0.86 (0.52-1.25); POTASSIUM 4.1 mmol/L (3.4-5.0); TOTAL PROTEIN 6.1 gm/dL (6.4-8.2)
[2019-03-05 18:16] LABS: HEMATOCRIT 27.5 % (37.0-47.0); HEMOGLOBIN 8.9 g/dl (12.5-16.0); MEAN CORPUSCULAR HEMOGLOBIN 29 pg (27.0-31.0)
[2019-03-05 18:27] LABS: COLLECTION METHOD CLEAN CATCH
[2019-03-05 18:37] LABS: MUCOUS Present /lpf; PH 5 (5-8); SQUAMOUS EPITHELIAL 20-50 /hpf; URINE APPEARANCE Cloudy; URINE BACTERIA None Seen /hpf; URINE BILIRUBIN Negative (NEGATIVE); URINE BLOOD 1+ (NEGATIVE); URINE COLOR Amber; URINE GLUCOSE Negative (NEGATIVE); URINE KETONE 1+ (NEGATIVE); URINE LEUKOCYTE ESTERASE 3+ (NEGATIVE); URINE NITRATE Negative (NEGATIVE); URINE PROTEIN(semi-quant) 2+ (NEGATIVE); URINE RBC >50 /hpf; URINE UROBILINOGEN Negative (NEGATIVE)
[2019-03-05 19:11] LABS: BAND 5 % (0-10); LYMPHOCYTE 6 % (20.0-51.0); METAMYELOCYTE 8 % (0-0); NEUTROPHILS 71 % (42.0-75.2); NUCLEATED RED BLOOD CELL 6 (0-6); PLATELET ESTIMATE DECREASED (NORMAL)
[2019-03-05 19:12] LABS: ANISOCYTOSIS 2+; HELMET CELLS 1+; HYPOCHROMIA 1+; MICROCYTOSIS 2+; STOMATOCYTE 1+; TEAR DROP CELLS 1+
[2019-03-05 20:11] LABS: INR 2.6 (0.8-3.0); PROTHROMBIN TIME 31.2 SECONDS (9.7-12.8)
--- NOTE | 2019-03-05 21:20 | NUR ---
Pt report received from Annabella DURÁN from ED.
--- NOTE | 2019-03-05 21:30 | NUR ---
Pt arrived via stretcher to ICU06. Pt was lethargic although agreed to transfer via assistance X2 nurses from stretcher to ICU bed. Pt denied weakness although assistance was required physically by nurses standing on both sides of the pt as well as multiple verbal cueing by staff of next instructions. Pt able to follow instructions. Once pt laid down, assessment was completed. Assessment questions were asked although pt would only open eyes to the sound of name and answer with short 1 word answers although replies were inconsistent. Wig is in place on head at this time with clothing in a personal belongings bag placed in the cabinet in pts room.
[2019-03-06] VITALS (498 sets, daily range): BP systolic 109–137; BP diastolic 59–76; PULSE 76–91; TEMP 97.9–98.8; O2SAT 88–100
--- NOTE | 2019-03-06 05:00 | NUR ---
Pt demonstrated proper use of call light requesting to sit on the bedpan at this time.
[2019-03-06 05:19] LABS: HEMATOCRIT 25.9 % (37.0-47.0); HEMOGLOBIN 8.4 g/dl (12.5-16.0); MEAN CELL VOLUME 89 fl (80.0-100.0); MEAN CORPUSCULAR HEMOGLOBIN 29 pg (27.0-31.0); MEAN CORPUSCULAR HGB CONC 32 g/dl (33.0-37.0); MEAN PLATELET VOLUME 11.5 fl (7.4-10.4); PLATELET COUNT 76 K/mm3 (130-400); RED BLOOD COUNT 2.92 M/mm3 (4.10-5.30); REDCELL DISTRIBUTION WIDTH-CV 19.2 % (11.5-14.5)
[2019-03-06 05:25] LABS: INR 2.5 (0.8-3.0); PROTHROMBIN TIME 29.6 SECONDS (9.7-12.8)
[2019-03-06 05:26] LABS: ALBUMIN 2.7 gm/dL (3.5-5.0); BILIRUBIN,TOTAL 1.4 mg/dL (0.0-1.0); CALCIUM 7.9 mg/dL (8.4-10.2); CREATININE, serum 0.84 (0.52-1.25); POTASSIUM 4.1 mmol/L (3.4-5.0); TOTAL PROTEIN 5.8 gm/dL (6.4-8.2)
[2019-03-06 05:44] LABS: ANISOCYTOSIS 2+; BAND 23 % (0-10); LYMPHOCYTE 2 % (20.0-51.0); METAMYELOCYTE 3 % (0-0); NEUTROPHILS 60 % (42.0-75.2); PLATELET ESTIMATE DECREASED (NORMAL)
[2019-03-06 05:45] LABS: HYPOCHROMIA 1+; OVALOCYTES 1+
--- NOTE | 2019-03-06 07:40 | NUR ---
Report provided to Jossy DURÁN. Pt resting in bed with wig in place.
--- NOTE | 2019-03-06 07:45 | NUR ---
DR. MARTÍNEZ HERE TO SEE PATIENT. THEY HAVE DISCUSSION REGARDING PROGNOSIS. NO NEW ORDERS RECEIVED AT THIS TIME.
[2019-03-06 08:10] LABS: PATHOLOGY DIFF REVIEW OK
--- NOTE | 2019-03-06 10:03 | NUR ---
Initial visit; Patient thanked Oxyhydrogen Welder for coming by and offering God's blessings. Oxyhydrogen Welder introduced herself to two visitors letting them know spiritual care is available to Caitlyn and them whenever they choose.
--- NOTE | 2019-03-06 11:29 | NUR ---
Myself and Katty BAZAN met with pt and pt sisters Juan and Belkis to discuss goals of care. Pt opted to become a DNR. Pt stated, "I know I have cancer and they are saying there is nothing they can do", when asked her understanding of where she is with her illness. Pt stated that she is not scared because she is placing her illness in the Lord's hands. When asked what her most important goals were she stated, to pass away peacefully, however pt is not quite ready for hospice, she still feels the need to fight on her own terms. She defines God as her greatest strength. She stated that being at home with her dog "Jacinda" would be the most critical ability at this point in her illness and for the future. When asked how much she is willing to go through for the possibility of gaining more time, pt stated that she was interested in future chemotherapy treatments but after speaking with the physicians, has decided she would like to go home and be comfortable. At this time, the pt would like to go home and be cared for primarily by her sister Belkis until that becomes too much for Belkis to deal with then bring Hospice on board. Discussed the role of Hospice in the home in great detail with pt and sisters and all verbalized understanding. Provided resources on Hospice agencies in area to them and how to access these when ready. They agreed and verbalized understanding. Katty BAZAN asked, "What is your plan to manage your pain and deal with a pain crisis the next time?" Pt stated she did not have any pain medications at home, spoke with Dr Cox who agreed to prescribe Roxinol for pt use at home for pain. Pt and sisters all very satisfied with decisions made and pt to be transferred to medical floor until she is stable for discharge home.
--- NOTE | 2019-03-06 11:31 | NUR ---
BENI and nurse TONIO met with patient and her sisters Juan and Belkis after clinical rounding to discuss goals of care and discharge. Patients PCP is Dr Morley and she obtains her medications from [facility]. Patients sister provides services for her in home through [employer]. Patient informed Dr she wanted to be a DNR during rounding. NCM discussed patients goals for care. She wants to be comfortable and pass peacfully. BENI explained patients options for hospice and provided the medicare approved list for [facility]. Patient does not want to go into a facility and returning home is important to her. BENI talked about what hospice could provide in the home and explained that it did not mean she would go into a usp or hospice house. Patients sister was a hospice nurse in the past for [employer] [facility] and would like to continue caring for her sister in the home. They do not want hospice set up at this time but took the information and agree that once it gets past where she is comfortable caring for her they will call PCP and arrange it. Patient also stated she does not want to come back to the hospital. The sisters only concern with that was patient does not currently have any pain meds at home. BENI talked with who will send patient home with a pain regimine. Patient is comfortable with the plan to focus on Comfort and stop all life extending measures at this time. Patient to move to the 3rd floor and possible dc home tomorrow.
--- NOTE | 2019-03-06 15:11 | NUR ---
BENI left a message for dr ortiz nurse to call to provide update.
--- NOTE | 2019-03-06 16:01 | NUR ---
BENI talked with Dr Morley and updated him on patients wishes for DNR and Do not hospitalize and told him that they are not ready for hospice yet but that the information was provided.
--- NOTE | 2019-03-06 17:15 | NUR ---
REPORT CALLED TO LUIS ARMANDO PUGA ON MEDICAL. PATIENT TRANSFERRED TO ROOM 308 WITH NO ISSUE. PATIENT COMFORTABLE AND LYING IN BED WHEN CARE TURNED OVER.
--- NOTE | 2019-03-06 17:44 | NUR ---
Pt arrived to room 308 via wheelchair from ICU. Pt very sleepy, denies needs at this time. Lung sounds clear, heart RRR. pt has colleen cath to right chest, flushes well and good blood return. Pulses strong bilaterally. Pt on 2L NC for comfort. pt denies wanting dinner. No other concerns at this time. Call light within reach.
--- NOTE | 2019-03-06 19:03 | NUR ---
Pt sleeping in bed, responds to name. Report given to LUIS ARMANDO Gallardo.
--- NOTE | 2019-03-06 21:53 | NUR ---
pt resting in bed a+ox4. reports no pain. linens dry, dionne care provided. port-a-cath flushes well, blood return noted. zosyn running at this time. lungs clear x4. assessment complete at this time. call light in reach
[2019-03-07 03:08] VITALS: BP 110/61; PULSE 90; TEMP 100.2
--- NOTE | 2019-03-07 05:15 | NUR ---
pt had an uneventful night. reported no pain. port-a-cath flushes well, blood return noted. assisted to BSC with 1 assist and gatebelt. dionne care provided. zosyn given as scheduled. pt on 2L via NC- sat >95%- for pt comfort. no needs at this time. call light in reach
[2019-03-07 05:52] LABS: MEAN CELL VOLUME 90 fl (80.0-100.0); MEAN CORPUSCULAR HGB CONC 33 g/dl (33.0-37.0); MEAN PLATELET VOLUME 11.8 fl (7.4-10.4); PLATELET COUNT 71 K/mm3 (130-400); RED BLOOD COUNT 2.51 M/mm3 (4.10-5.30); REDCELL DISTRIBUTION WIDTH-CV 19.9 % (11.5-14.5)
[2019-03-07 05:53] LABS: HEMATOCRIT 22.7 % (37.0-47.0); HEMOGLOBIN 7.4 g/dl (12.5-16.0); MEAN CORPUSCULAR HEMOGLOBIN 29 pg (27.0-31.0)
[2019-03-07 06:03] LABS: ALBUMIN 2.4 gm/dL (3.5-5.0); BILIRUBIN,TOTAL 1.7 mg/dL (0.0-1.0); CALCIUM 7.3 mg/dL (8.4-10.2); CREATININE, serum 2.09 (0.52-1.25); POTASSIUM 4.6 mmol/L (3.4-5.0); TOTAL PROTEIN 5.4 gm/dL (6.4-8.2)
[2019-03-07 06:34] LABS: LYMPHOCYTE 16 % (20.0-51.0); NEUTROPHILS 71 % (42.0-75.2)
[2019-03-07 06:35] LABS: ANISOCYTOSIS 3+; PLATELET ESTIMATE DECREASED (NORMAL)
--- NOTE | 2019-03-07 07:23 | NUR ---
report given to LUIS ARMANDO RODRIGUEZ. pt reports no needs
[2019-03-07 07:35] VITALS: BP 114/48; PULSE 87; TEMP 99
--- NOTE | 2019-03-07 10:26 | NUR ---
Pt resting in the room in bed, denies pain at this time, shift assessments complete, left Pt call light in reach, bed in lowest position.
[2019-03-07 11:46] VITALS: BP 122/49; PULSE 90; TEMP 100
[2019-03-07 16:42] VITALS: BP 107/57; PULSE 90; TEMP 100
--- NOTE | 2019-03-07 18:26 | NUR ---
Pt resting during the day, Pt has not had a appetite and has only had some broth this morning, some C/O pain during the day, pain medications given and pain was relieved, VS have remained stable.
[2019-03-07 19:09] VITALS: BP 117/63; PULSE 90; TEMP 98.3
--- NOTE | 2019-03-07 20:00 | NUR ---
PT RESTING IN BED A+OX4. ANSWERS QUESTIONS APPROPIATELY. EASY TO AROUSE. REPORT PAIN 7/10- PRN PAIN MED GIVEN. LUNGS CLEAR X4. BOWEL SOUNDS AUDIBLE. PT HAD SMALL BM AT 1945. PT ASSISTED TO BSC WITH GAITBELT. VSS. NO SOA. PT ON 2L VIA NC. SAT STABLE. SKN INTACT BEHIND EARS AND NOSE. SACREAL REGION IS INTACT-TURNING Q2H. MICHAEL CARE PROVIDED. NO NEEDS AT THIS TIME. CALL LIGHT IN REACH. FALL PRECATIONS IN PLACE. BED ALRM ON.
--- NOTE | 2019-03-07 22:30 | NUR ---
PT'S SISTER CALLED- ASKED ABOUT PAIN MED SCHEDULE. INFORMED ROXANOL IS PRN BUT THIS NURSE WILL ASK PT/CHECK ON OFTEN ABOUT PAIN. NO OTHER QUESTIONS OR CONCERNS VOICED BY SISTER.
--- NOTE | 2019-03-07 22:50 | NUR ---
PT RESTING IN BED DROWSY, DIFFICULTY ARROUSING. PT DOES NOT ANSWER WHEN ASKED ABOUT PAIN. VSS. RR 12. PT DID NOT WANT DINNER, ENCOURAGING PO LIQUIDS. NO NEEDS AT THIS TIME. WILL CONTINUE TO MINITOR.
[2019-03-07 23:26] VITALS: BP 105/43; PULSE 81; TEMP 98.9
--- NOTE | 2019-03-08 01:00 | NUR ---
reports no needs for pain meds at this time.
[2019-03-08 03:35] VITALS: BP 112/59; PULSE 87; TEMP 97.4
--- NOTE | 2019-03-08 07:21 | NUR ---
PT HAD AN UNEVENTFUL NIGHT. PT VERY DROWSY AND HARD TO AROUSE THROUGHOUT NIGHT. REPORTED NO PAIN AFTER 2200. CHECK ON PT MULT. VSS. PORT-ACATH FLUSHES WELL, BLOOD RETURN NOTED. LUNGS CLEAR X4. HEART RRR. BOWEL SOUNDS AUDIBLE X4. FALL PRECAUTIONS IN PLACE. BED ALRM ON. NO NEEDS AT THIS TIME. CALL LIGHT IN REACH. REPORT GIVEN TO LUIS ARMANDO RODRIGUEZ
[2019-03-08 07:36] LABS: MEAN CELL VOLUME 88 fl (80.0-100.0); MEAN CORPUSCULAR HGB CONC 33 g/dl (33.0-37.0); MEAN PLATELET VOLUME 11.9 fl (7.4-10.4); PLATELET COUNT 90 K/mm3 (130-400); RED BLOOD COUNT 2.32 M/mm3 (4.10-5.30); REDCELL DISTRIBUTION WIDTH-CV 20.5 % (11.5-14.5)
[2019-03-08 07:45] LABS: HEMATOCRIT 20.5 % (37.0-47.0); HEMOGLOBIN 6.7 g/dl (12.5-16.0); MEAN CORPUSCULAR HEMOGLOBIN 29 pg (27.0-31.0)
[2019-03-08 07:47] LABS: CREATININE, serum 3.41 (0.52-1.25); POTASSIUM 4.6 mmol/L (3.4-5.0)
[2019-03-08 07:54] VITALS: BP 107/75; PULSE 86; TEMP 98.8
[2019-03-08 08:24] LABS: ANISOCYTOSIS 1+; BAND 1 % (0-10); LYMPHOCYTE 8 % (20.0-51.0); NEUTROPHILS 85 % (42.0-75.2); PLATELET ESTIMATE DECREASED (NORMAL)
[2019-03-08] MEDS ORDERED: MACROBID 1100 MG/CAP PO (09:27)
[2019-03-08] MEDS ORDERED: TRANSDERM-0.5 MG/21 TD (09:28)
[2019-03-08] MEDS ORDERED: ZOFRAN ODT4 MG PO (09:28)
[2019-03-08] MEDS ORDERED: LORAINT SL (09:30)
[2019-03-08] MEDS ORDERED: ROXANOL 20MG20 MG/ML SL (09:30)
--- NOTE | 2019-03-08 09:52 | NUR ---
Discussed options of Home with Hospice vs Hospice House with pt/pt's sister Violette/BENI Duarte/TONIO Sahni. A decision was made by patient for the Hospice House. Comfort quilt given to pt.
--- NOTE | 2019-03-08 10:02 | NUR ---
BENI and MIR met wit patient and sister about hospice options. Patient and sister both decided going to the [facility] would be the best hospice decision for patient and her family. BENI contacted and faxed a referral to [facility].
--- NOTE | 2019-03-08 10:05 | NUR ---
Pt resting in pet, sleepy but can be awakened, lethargic, shift assessments complete, left Pt call light in reach, bed in lowest position.
--- NOTE | 2019-03-08 10:56 | NUR ---
BENI spoke with Bear from the hospice house. Patient was accepted and they are able to admit patient tomorrow at 10am tomorrow 03/09. SW informed patient.
--- NOTE | 2019-03-08 11:00 | NUR ---
Follow-up visit; Patient and her daughter thanked Net Technical Architect for offering prayer for Doris and words of comfort and assurance of God's love for both her and her daughter.
--- NOTE | 2019-03-08 19:58 | NUR ---
Pt has been sleeping on and off during the day, Pt is easily awakened from sleep, minimal C/O pain requiring medication today, VS have remained stable.
[2019-03-08 20:34] VITALS: BP 116/40; PULSE 80; TEMP 97.9
--- NOTE | 2019-03-08 21:00 | NUR ---
PT RESTING IN BED ORIENTED BUT DROWSY. PT DOES NOT AROUSE EALILY. LUNGS CLEAR X4. HEART RRR. BOWEL SOUNDS HYPOACTIVE. TURNING Q2H. REPORTS NO NEEDS FOR PAIN MEDS- ASKING PT ABOUT PAIN Q2H WHEN TURNING. PT ON 2L VIA NC- SAT STABLE. VSS. PORT-A-CATH FLUSHES WELL, BLOOD RETURN NOTED. NO NEEDS AT THIS TIME. CALL LIGHT IN REACH.
[2019-03-09 00:06] VITALS: BP 98/54; PULSE 78
--- NOTE | 2019-03-09 04:23 | NUR ---
TURNING AND CHECKING ON PAIN LEVEL Q2H. PT SLEEPING AT THIS TIME AND REFUSED PAIN MEDS. PT DROWSY HARD TO AROUSE BUT OPENS EYES WITH USE OF PT NAME. PT ON 2L VIA NC. NO NEEDS AT THIS TIME. CALL LIGHT IN REACH. BED AARLM ON
[2019-03-09 04:44] VITALS: BP 89/61; PULSE 83; TEMP 98.1
--- NOTE | 2019-03-09 05:43 | NUR ---
PT HAD AN UNEVENTFUL NIGHT. REPORTED NO PAIN AND REPORTS NO NEED FOR PAIN MEDS. RIGHT SIDE PORT-A-CATH FLUSHES WELL, BLOOD RETURN NOTED. HYPOACTIVE BOWEL SOUNDS. LUNG SOUNDS CEAR. HEART RRR. BP DECREASING THROUGHOUT NIGHT, OTHER VITALS STABLE. PT ON 2L VIA NC- SKIN INTACT BEHIND EARS AND NOSE. PT DID NOT URINATE OR HAVE A BM DURING NIGHT. NO INCONTINENCE. NO NEEDS AT THIS TIME. CALL LIGHT IN REACH. FALL PRECAUTIONS IN PLACE- BED ALRM ON.
--- NOTE | 2019-03-09 07:07 | NUR ---
REPORT GIVEN TO DAY SHIFT RN
--- NOTE | 2019-03-09 07:45 | NUR ---
Patient drowsy, awakens to loud verbal stimuli, non verbal. See assessment. To transfer to [facility] today.
[2019-03-09 09:04] VITALS: BP 97/50; PULSE 81; TEMP 98.6
[2019-03-09 09:18] VITALS: BP 97/50; PULSE 81; TEMP 98.6
--- NOTE | 2019-03-09 10:11 | NUR ---
Patient transferred to [id number]. Report called, paperwork sent.
== END 2019-03-09 10:05 | disposition hospice, home (50) ==
LOC: COL.ER 17:03 → MEDICAL 19:55 → ICU 21:24 → MEDICAL 03-06 17:26
PROVIDERS: Emergency Medicine; Nurse Practitioner; Physician Assistant; ADMIT Hospitalist
DX: N39.0 Urinary tract infection, site not specified (principal); K72.00 Acute and subacute hepatic failure without coma; C54.1 Malignant neoplasm of endometrium; C78.6 Secondary malignant neoplasm of retroperitoneum and peritoneum; D63.8 Anemia in other chronic diseases classified elsewhere; N17.9 Acute kidney failure, unspecified; Z66 Do not resuscitate; E03.9 Hypothyroidism, unspecified; Z79.899 Other long term (current) drug therapy; E87.2 Acidosis; Z86.711 Personal history of pulmonary embolism; Z86.718 Personal history of other venous thrombosis and embolism; Z80.0 Family history of malignant neoplasm of digestive organs; Z84.89 Family history of other specified conditions; Z81.2 Family history of tobacco abuse and dependence; Z90.710 Acquired absence of both cervix and uterus
CPT/HCPCS: 99233-AI; 99239; G0378; J1170; J2405; J2543; J3010; J7030; J7120; Q9967